=== PATIENT | male | born 2005 | race Caucasian/White ===

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

== ENCOUNTER 2024-07-12 09:19 | Emergency (ER) | payer MEDICAID, SELFPAY ==
[2024-07-12 09:29] VITALS: BP 124/77; PULSE 108; RESP 20; TEMP 38.4; O2SAT 98; BMI 20.4
--- NOTE | 2024-07-12 09:33 | ED.GENADULT ---
HPI - General Adult General Chief complaint: Cough Stated complaint: Feel hot and cold, puking, bad cough Time Seen by Provider: 07/12/24 09:27 History of Present Illness HPI narrative: Patient reports hot/cold spells, body aches, fever, cough and vomiting that began yesterday . Has taken Sudafed this AM for symptoms. 18-year-old young man presenting to the emergency department with concern of fever and body aches. Second day of illness. Feels alternating hot and cold. Achy all over. Some cough. Was given Sudafed PE this morning. No ibuprofen or acetaminophen. Said he has not actually vomited but was real close shortly before arrival into this department. No rashes reported. No noted diarrhea. Related Data Previous Rx's ?Medication ?Instructions ?Recorded albuterol sulfate 90 mcg/actuation 2 puff inhalation Q4-6H PRN 06/29/24 aerosol inhaler shortness of breath or wheezing #6.7 grams Allergies Allergy/AdvReac Type Severity Reaction Status Date / Time No Known Allergies Allergy Unknown Verified 06/29/24 18:27 Review of Systems Status of ROS: Reports: 6 or more systems reviewed and unremarkable except as noted in History and below [facility] Surgical History (Updated 06/27/22 @ 11:44 by Rosario Gutierrez MD) S/P laparoscopic appendectomy ?Z90.49 - Acquired absence of other specified parts of digestive tract (ICD-10) Social History Narrative: 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 Smoking Status: Never smoker How often do you have a drink containing alcohol: never AUDIT-C Alcohol total score: 0 Non-prescribed substance use: denies use Exam Narrative: Exam Narrative: Pleasant. Looks like he does not feel very good. There is copious rhinorrhea. Oropharynx is moist and without erythema posterior. Neck is supple without lymphadenopathy. Does sound congested the nasopharynx. Lungs are clear. Heart in tachycardic rate and regular rhythm. Abdomen is soft. Skin is quite warm. Moving all extremities without difficulty. Const: Vital Signs, click to edit/add: Vital Signs - 24 hr 07/12/24 09:29 Temperature 101.2 F H Pulse Rate [Pulse Oximeter] 108 H Respiratory Rate 20 Blood Pressure [Ri ght Upper Arm] 124/77 Pulse Oximetry 98 Oxygen Delivery Me thod Room Air Documenting provider has reviewed patient's vital signs: yes Course Vital Signs Vital signs: Initial Vital Signs Temperature 101.2 F H 07/12/24 09:29 Temperature Source Temporal Artery Scan 07/12/24 09:29 Pulse Rate 108 H 07/12/24 09:29 Respiratory Rate 20 07/12/24 09:29 Blood Pressure 124/77 07/12/24 09:29 Blood Pressure Mean 92 07/12/24 09:29 Pulse Oximetry 98 07/12/24 09:29 Oxygen Delivery Method Room Air 07/12/24 09:29 Vital Signs Temperature 101.2 F H 07/12/24 09:29 Pulse Rate 108 H 07/12/24 09:29 Respiratory Rate 20 07/12/24 09:29 Blood Pressure 124/77 07/12/24 09:29 Pulse Oximetry 98 07/12/24 09:29 Oxygen Delivery Method Room Air 07/12/24 09:29 Temperature 101.2 F H 07/12/24 09:29 Pulse Rate 108 H 07/12/24 09:29 Respiratory Rate 20 07/12/24 09:29 Blood Pressure 124/77 07/12/24 09:29 Pulse Oximetry 98 07/12/24 09:29 Oxygen Delivery Method Room Air 07/12/24 09:29 Medications Administered Medications: Discontinued Medications Generic Name Dose Route Start Last Admin Trade Name Freq PRN Reason Stop Dose Admin Sodium Chloride 1,000 mls @ 1,000 mls/hr 07/12/24 09:39 07/12/24 10:31 0.9 % Sodium Chloride 1000 Ml IV 07/12/24 10:38 Infused .Q1H ONE Infusion Ibuprofen 800 mg 07/12/24 09:39 07/12/24 09:58 Ibuprofen 400 Mg Tablet PO 07/12/24 09:40 800 mg ONCE ONE Administration Ondansetron HCl 4 mg 07/12/24 09:39 07/12/24 09:59 Ondansetron 2 Mg/Ml Inj IVP 07/12/24 09:40 4 mg ONCE ONE Administration Medical Decision Making MDM Narrative Medical decision making narrative: I discussed benefit of ibuprofen. Considering community prevalence I would think this is influenza a. Would screen for this. I did propose oral antiemetic and antipyretic as opposed to IV fluids but he would really like IV fluids. Will start an IV and give normal saline. Reassess with further treatment as necessary. Influenza a positive. With treatment as above is improved. Vitals stable. Medical Records Medical records reviewed: Yes I reviewed the patient's medical records Lab Data Lab results reviewed: Yes I reviewed the patient's lab results Labs: Lab Results 07/12/24 Range/Units 09:22 SARS-CoV-2 (PCR) Negative SARS-CoV-2 (Negative) Influenza Type A (PCR) POSITIVE PCR FLU A A (Negative) Influenza Type B (PCR) Negative PCR FLU B (Negative) RSV (PCR) Negative PCR RSV (Negative) Discharge Plan Discharge Clinical Impression: Influenza A, Myalgia Patient Disposition: Home w/ Parent or Adult Condition: Improved Instructions: Influenza (ED) Additional Instructions: Focus on hydration. Can take up to 600 mg of ibuprofen or up to 850 mg of acetaminophen per dose. These can be combined. Instead of ibuprofen could take up to 375 mg of naproxen 2 times daily. If you want I am also making available Zofran as a nausea med from [facility]. Otherwise Tamiflu as requested I would expect your illness to last 5-7 days. Prescriptions: No Action albuterol sulfate 90 mcg/actuation HFA aerosol inhaler 2 puff inhalation Q4-6H PRN (Reason: shortness of breath or wheezing) Qty: 6.7 0RF Follow Up/Referrals: Provider,Not a Local [Primary Care Provider] - Stand Alone Forms: [facility] [employer] Info Instructions
[2024-07-12] MEDS: IBUPROFEN 400 MG TABLET 800 MG PO (09:58)
[2024-07-12] MEDS: ONDANSETRON 2 MG/ML inj 4 MG IVP (09:59)
[2024-07-12] MEDS: 0.9 % SODIUM CHLORIDE 1000 ml 1,000 ML IV (09:59)
[2024-07-12 10:14] LABS: PCR FLU A POSITIVE PCR FLU A (Negative); PCR FLU B Negative PCR FLU B (Negative); PCR RSV Negative PCR RSV (Negative); SARS PCR* Negative SARS-CoV-2 (Negative)
== END 2024-07-12 10:50 | disposition home or self-care (01) ==
PROVIDERS: Emergency Provider Family Medicine
DX: J10.1 Influenza due to other identified influenza virus with other respiratory manifestations (principal); M79.10 Myalgia, unspecified site
CPT/HCPCS: 87631; 96374; 99284; A9270; J2405; J7030